=== PATIENT | male | born 1995 | race Two or more races ===

== ENCOUNTER 2022-06-12 07:23 | Outpatient (CLI) | payer OTHER | END 2022-06-12 07:27 | disposition home or self-care (01) | LOC: LAB 07:23 | PROVIDERS: ATTEND Obstetrics & Gynecology | DX: Z20.828 Contact with and (suspected) exposure to other viral communicable diseases (principal); Z20.818 Contact with and (suspected) exposure to other bacterial communicable diseases ==

== ENCOUNTER 2024-06-20 02:23 | Emergency (ER) | payer OTHER ==
[~2024-06-20] VITALS: Ht 170.2 cm; Wt 95.3 kg
[2024-06-20] MEDS ORDERED: SYNTHROID200 MCG PO (02:35)
[2024-06-20] MEDS ORDERED: KETOROLAC TROMETHAMINE 60 MG VIAL IM STA (03:00)
[2024-06-20] MEDS ORDERED: OxyCODONE HCL/APAP UD (PERCOCET) PO STA (03:00)
[2024-06-20] MEDS ORDERED: KETOROLAC TROMETHAMINE 60 MG VIAL IM ONE (03:05)
== END 2024-06-20 04:00 | disposition home or self-care (01) ==
LOC: ER 02:25
DX: S20.211A Contusion of right front wall of thorax, initial encounter (principal); W19.XXXA Unspecified fall, initial encounter; Y93.89 Activity, other specified; Y92.89 Other specified places as the place of occurrence of the external cause; Y99.9 Unspecified external cause status